=== PATIENT | male | born 1940 | race Asian ===

== ENCOUNTER 2016-04-27 15:23 | Emergency (ER) | payer OTHER ==
[~2016-04-27] VITALS: Ht 165.1 cm; Wt 77.1 kg
[~2016-04-27 15:23] MED LIST: SYNTHROID0.125 MG PO
[2016-04-27 15:29] VITALS: BP 123/75
--- NOTE | 2016-04-27 15:33 | NUR ---
Patient to bed 06.
--- NOTE | 2016-04-27 15:38 | NUR ---
PT PRESENTS TO ER W/C/O COUGH AND FEVER X1 WEEK. HX COPD, SINUSITIS; DENIES N/V/D; SKIN IS PINK/WARM/DRY; AAOX4 WITH EVEN AND STEADY GAIT; LUNGS CLEAR BL; HR EVEN AND REGULAR; PT DENIES ANY FEVER, CP, SOB, OR COUGH AT THIS TIME; PATIENT STATES HEADACHE PAIN OF 6/10 AT THIS TIME; VSS; PATIENT POSITIONED FOR COMFORT; HOB ELEVATED; BEDRAILS UP X2; BED DOWN. ER MD MADE AWARE OF PT STATUS.
--- NOTE | 2016-04-27 16:12 | NUR ---
Dr. Rodriguez evaluating patient at bedside.
--- NOTE | 2016-04-27 16:26 | NUR ---
[facility] PT TAKEN TO XRAY VIA WHEEL CHAIR BY JENNIFFER VIBHA
[2016-04-27 17:10] VITALS: BP 115/67
--- NOTE | 2016-04-27 17:10 | NUR ---
Patient discharged with v/s stable. Written and verbal after care instructions given and explained. Patient alert, oriented and verbalized understanding of instructions. Ambulatory with steady gait. All questions addressed prior to discharge. ID band removed. Patient advised to follow up with PMD. Rx of PREDNISONE, LEVAQUIN, ALBUTEROL INHALER given. Patient educated on indication of medication including possible reaction and side effects. Opportunity to ask questions provided and answered.
== END 2016-04-27 17:10 | disposition home or self-care (01) ==
LOC: MED 15:23
DX: J44.9 Chronic obstructive pulmonary disease, unspecified (principal); J40 Bronchitis, not specified as acute or chronic; E03.9 Hypothyroidism, unspecified; Z88.6 Allergy status to analgesic agent; Z88.5 Allergy status to narcotic agent

== ENCOUNTER 2021-06-07 13:04 | Emergency (ER) | payer OTHER ==
[~2021-06-07] VITALS: Ht 175.3 cm; Wt 69.9 kg
[~2021-06-07 13:04] MED LIST changes: +LEVO0.124 PO; -SYNTHROID0.125 MG PO
[2021-06-07 13:21] VITALS: BP 144/73
--- NOTE | 2021-06-07 13:23 | NUR ---
pt ambulated to bed 07 with steady gait
--- NOTE | 2021-06-07 14:05 | NUR ---
80/M C/O RIGHT SIDED CHEST PAIN AND HEADACHE X4 DAYS. PATIENT REPORTS FATIGUE AND EPISODES OF DIZZINESS, C/O INTERMITTENT HEADACHES. PATIENT STATES HE HAS BEEN TAKING TYLENOL WITH MILD RELIEF. PATIENT DENIES N/V/D OR VISION CHANGES.
--- NOTE | 2021-06-07 14:06 | NUR ---
80yo M PT C/O OF RIGHT SIDED CHEST PAIN AND HEADACHE OF 4/10. PT STATES FEELING FATIGUED AND DIZZY AND HAS BEEN FOR THE LAST 4 DAYS. PT HAS HEADACHE IN TEMPLES OF HEAD . PT STATED TAKING TYLENOL WITH MILD RELIEF. PT IS ALERT WITH SLIGHT DELAY IN RESPONSE. 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 PT HAS DIABETES BUT STATES EATING LUNCH PRIOR TO ARRIVAL MHX: DIABETES ALLERGIES: NKA
--- NOTE | 2021-06-07 14:07 | NUR ---
LAB AT BEDSIDE
--- NOTE | 2021-06-07 14:07 | NUR ---
DR FERRERA AT BEDSIDE
[2021-06-07 14:51] LABS: BASOPHILS % (AUTO) 0.6 % (0.0-2.0); EOSINOPHILS # (AUTO) 0.2 K/uL (0-0.4); EOSINOPHILS % (AUTO) 3.3 % (0.0-4.0); HEMATOCRIT 34.5 % (36-52); HEMOGLOBIN 11.5 g/dL (12.0-18.0); LYMPHOCYTES # (AUTO) 1.4 K/uL (2.0-11.5); LYMPHOCYTES % (AUTO) 19.1 % (20.5-51.1); MEAN CORPUSCULAR HEMOGLOBIN 31 pg (27-31); MEAN CORPUSCULAR HGB CONC 33 g/dL (33-37); MEAN CORPUSCULAR VOLUME 91.4 fL (80-94); MONOCYTES # (AUTO) 0.6 K/uL (0.8-1.0); MONOCYTES % (AUTO) 8.6 % (1.7-9.3); NEUTROPHILS # (AUTO) 5.1 K/uL (1.8-7.7); NEUTROPHILS % (AUTO) 68.4 % (42.2-75.2); PLATELET COUNT (AUTO) 330 K/uL (140-450); RED BLOOD CELL COUNT(AUTO) 3.77 MIL/uL (4.20-6.10); RED CELL DISTRIBUTION WIDTH 14.8 % (11.6-13.7); WHITE BLOOD COUNT (AUTO) 7.4 K/uL (4.8-10.8)
[2021-06-07 16:14] LABS: ANION GAP 10.2 (8-16); CARBON DIOXIDE 27.6 mmol/L (21-32); CHLORIDE 96 mmol/L (98-107); GLUCOSE 103 mg/dL (74-106); POTASSIUM 3.8 mmol/L (3.5-5.1); SODIUM SERUM 130 mmol/L (136-145); TOTAL BILIRUBIN 0.2 mg/dL (0.0-1.0); UREA NITROGEN, BLOOD 14 mg/dL (7-18)
[2021-06-07 16:15] LABS: ALBUMIN 3.7 g/dL (3.4-5.0); ASPARTATE AMINOTRANSFERASE 19 U/L (15-37)
[2021-06-07 16:18] LABS: LIPASE 208 U/L (73-393)
--- NOTE | 2021-06-07 17:42 | NUR ---
LAB AT BEDSIDE
--- NOTE | 2021-06-07 18:40 | NUR ---
PATIENT PROVIDED WITH URINE CUP, AMBULATED TO RESTROOM WITH STEADY GAIT TO PROVIDE SAMPLE.
[2021-06-07] MEDS ORDERED: NACL 0.9% 1,000 ML IV ONE (19:05)
--- NOTE | 2021-06-07 19:25 | NUR ---
Pt report given to COMPA SIBLEY. Transfer of care at this time.
--- NOTE | 2021-06-07 19:59 | NUR ---
gave pt cranberry juice. turned lights off for pt comfort. side rails up for comfort
[2021-06-07 20:51] LABS: APPEARANCE,URINE CLEAR (CLEAR); BILIRUBIN,URINE NEGATIVE (NEGATIVE); BLOOD, URINE NEGATIVE (NEGATIVE); LEUKOCYTE ESTERASE ,URINE NEGATIVE (NEGATIVE); NITRITE, URINE NEGATIVE (NEGATIVE); PH,URINE 7.5 (5.0-9.0); UGLUCOSE NEGATIVE (NEGATIVE)
[2021-06-07 20:59] LABS: COLOR,URINE STRAW (YELLOW)
[2021-06-07 21:17] VITALS: BP 116/70
--- NOTE | 2021-06-07 21:17 | NUR ---
Patient discharged with v/s stable. Written and verbal after care instructions given and explained. Patient verbalized understanding. Ambulatory with steady gait. All questions addressed prior to discharge. Advised to follow up with PMD.
== END 2021-06-07 21:17 | disposition home or self-care (01) ==
LOC: MED 13:04
DX: E87.1 Hypo-osmolality and hyponatremia (principal); E86.0 Dehydration; E03.9 Hypothyroidism, unspecified; J44.9 Chronic obstructive pulmonary disease, unspecified; Z79.899 Other long term (current) drug therapy
CPT/HCPCS: 36415; 70450; 71045; 80053; 81003; 83690; 84443; 84484; 85025; 93005; 96360; 99285; J7030

== ENCOUNTER 2023-04-25 15:22 | Emergency (ER) | payer OTHER ==
[~2023-04-25] VITALS: Ht 165.1 cm; Wt 70.5 kg
[2023-04-25 15:38] VITALS: BP 149/72; PULSE 83; RESP 18; TEMP 97.8; O2SAT 100
[2023-04-25 16:15] LABS: BASOPHILS # (AUTO) 0.1 K/uL (0.00-0.22); EOSINOPHILS # (AUTO) 0.4 K/uL (0-0.4); EOSINOPHILS % (AUTO) 3.9 % (0.0-4.0); HEMATOCRIT 34.1 % (36-52); HEMOGLOBIN 11.6 g/dL (12.0-18.0); LYMPHOCYTES # (AUTO) 1.8 K/uL (2.0-11.5); LYMPHOCYTES % (AUTO) 19.8 % (20.5-51.1); MEAN CORPUSCULAR HEMOGLOBIN 30 pg (27-31); MEAN CORPUSCULAR HGB CONC 34 g/dL (33-37); MEAN CORPUSCULAR VOLUME 87.4 fL (80-94); MONOCYTES # (AUTO) 0.7 K/uL (0.8-1.0); MONOCYTES % (AUTO) 7.9 % (1.7-9.3); NEUTROPHILS # (AUTO) 6.2 K/uL (1.8-7.7); NEUTROPHILS % (AUTO) 67.4 % (42.2-75.2); PLATELET COUNT (AUTO) 331 K/uL (140-450); RED CELL DISTRIBUTION WIDTH 14.5 % (11.6-13.7); WHITE BLOOD COUNT (AUTO) 9.2 K/uL (4.8-10.8)
[2023-04-25 16:25] LABS: ANION GAP 9.2 (8-16); CALCIUM 9.3 mg/dL (8.5-10.1); CARBON DIOXIDE 28.6 mmol/L (21-32); CHLORIDE 99 mmol/L (98-107); CREATININE 0.8 mg/dL (0.6-1.3); GLUCOSE 105 mg/dL (74-106); POTASSIUM 3.8 mmol/L (3.5-5.1); SODIUM SERUM 133 mmol/L (136-145); UREA NITROGEN, BLOOD 13 mg/dL (7-18)
[2023-04-25 16:49] LABS: ALANINE AMINOTRANSFERASE 25 U/L (12-78); ALBUMIN 3.5 g/dL (3.4-5.0); ALKALINE PHOSPHATASE 45 U/L (50-136); ASPARTATE AMINOTRANSFERASE 18 U/L (15-37); TOTAL BILIRUBIN 0.1 mg/dL (0.0-1.0); TOTAL PROTEIN, SERUM 7.7 g/dL (6.4-8.2)
[2023-04-25 17:35] LABS: APPEARANCE,URINE CLEAR (CLEAR); BILIRUBIN,URINE NEGATIVE (NEGATIVE); BLOOD, URINE TRACE-I (NEGATIVE); COLOR,URINE YELLOW (YELLOW); LEUKOCYTE ESTERASE ,URINE NEGATIVE (NEGATIVE); NITRITE, URINE NEGATIVE (NEGATIVE); PROTEIN,URINE NEGATIVE (NEGATIVE); UGLUCOSE NEGATIVE (NEGATIVE); UROBILINOGEN,URINE 0.2 EU/dL (0.2 - 1)
[2023-04-25 18:35] VITALS: BP 133/70; PULSE 87; RESP 18; TEMP 98.3; O2SAT 97
== END 2023-04-25 18:36 | disposition home or self-care (01) ==
LOC: MED 15:22
DX: R53.1 Weakness (principal); E87.1 Hypo-osmolality and hyponatremia; D64.9 Anemia, unspecified; J44.9 Chronic obstructive pulmonary disease, unspecified; E03.9 Hypothyroidism, unspecified; Z88.8 Allergy status to other drugs, medicaments and biological substances; Z79.899 Other long term (current) drug therapy
CPT/HCPCS: 36415; 71045; 80048; 80076; 81003; 83880; 84484; 85025; 93005; 99285

== ENCOUNTER 2023-11-13 14:25 | Emergency (ER) | payer OTHER ==
[~2023-11-13] VITALS: Ht 165.1 cm; Wt 71.2 kg
[2023-11-13 14:41] VITALS: BP 131/76; PULSE 84; RESP 20; TEMP 98.7; O2SAT 98
[2023-11-13 15:35] VITALS: BP 126/78; RESP 20; TEMP 98.7
[2023-11-13 15:57] VITALS: PULSE 70; O2SAT 98
[2023-11-13 16:10] LABS: BASOPHILS # (AUTO) 0.1 K/uL (0.00-0.22); BASOPHILS % (AUTO) 0.9 % (0.0-2.0); EOSINOPHILS # (AUTO) 0.3 K/uL (0-0.4); EOSINOPHILS % (AUTO) 3.7 % (0.0-4.0); HEMATOCRIT 36.8 % (36-52); HEMOGLOBIN 12.2 g/dL (12.0-18.0); LYMPHOCYTES # (AUTO) 1.7 K/uL (2.0-11.5); LYMPHOCYTES % (AUTO) 23.9 % (20.5-51.1); MEAN CORPUSCULAR HEMOGLOBIN 29 pg (27-31); MEAN CORPUSCULAR HGB CONC 33 g/dL (33-37); MONOCYTES # (AUTO) 0.7 K/uL (0.8-1.0); MONOCYTES % (AUTO) 9.6 % (1.7-9.3); NEUTROPHILS # (AUTO) 4.5 K/uL (1.8-7.7); NEUTROPHILS % (AUTO) 61.9 % (42.2-75.2); PLATELET COUNT (AUTO) 328 K/uL (140-450); RED BLOOD CELL COUNT(AUTO) 4.19 MIL/uL (4.20-6.10); RED CELL DISTRIBUTION WIDTH 14.4 % (11.6-13.7); WHITE BLOOD COUNT (AUTO) 7.3 K/uL (4.8-10.8)
[2023-11-13 16:18] LABS: ANION GAP 8.1 (8-16); CALCIUM 8.7 mg/dL (8.5-10.1); CARBON DIOXIDE 31.5 mmol/L (21-32); CHLORIDE 94 mmol/L (98-107); CREATININE 0.9 mg/dL (0.6-1.3); GLUCOSE 91 mg/dL (74-106); POTASSIUM 3.6 mmol/L (3.5-5.1); SODIUM SERUM 130 mmol/L (136-145); UREA NITROGEN, BLOOD 10 mg/dL (7-18)
[2023-11-13 16:32] LABS: ALANINE AMINOTRANSFERASE 31 U/L (12-78); ALBUMIN 3.7 g/dL (3.4-5.0); ALKALINE PHOSPHATASE 54 U/L (50-136); ASPARTATE AMINOTRANSFERASE 22 U/L (15-37); BILIRUBIN,DIRECT 0.1 mg/dL (0.0-0.3); TOTAL BILIRUBIN 0.2 mg/dL (0.0-1.0); TOTAL PROTEIN, SERUM 6.9 g/dL (6.4-8.2)
[2023-11-13 16:43] LABS: APPEARANCE,URINE CLEAR (CLEAR); BILIRUBIN,URINE NEGATIVE (NEGATIVE); BLOOD, URINE NEGATIVE (NEGATIVE); COLOR,URINE YELLOW (YELLOW); LEUKOCYTE ESTERASE ,URINE NEGATIVE (NEGATIVE); NITRITE, URINE NEGATIVE (NEGATIVE); PH,URINE 6.5 (5.0-9.0); PROTEIN,URINE NEGATIVE (NEGATIVE); UGLUCOSE NEGATIVE (NEGATIVE); UROBILINOGEN,URINE 0.2 EU/dL (0.2 - 1)
[2023-11-13] MEDS ORDERED: SODI100076 PO (17:45)
[2023-11-13] MEDS ORDERED: ACET500T99 PO (17:57)
== END 2023-11-13 17:55 | disposition home or self-care (01) ==
LOC: MED 14:25
DX: M79.10 Myalgia, unspecified site (principal); J44.9 Chronic obstructive pulmonary disease, unspecified; E11.9 Type 2 diabetes mellitus without complications; I10 Essential (primary) hypertension; Z79.899 Other long term (current) drug therapy; Z87.891 Personal history of nicotine dependence; Z98.890 Other specified postprocedural states; Z88.6 Allergy status to analgesic agent; Z88.8 Allergy status to other drugs, medicaments and biological substances
CPT/HCPCS: 36415; 71045; 80048; 80076; 81003; 84484; 85025; 93005; 99285